=== PATIENT | female | born 1990 | race Caucasian/White ===

== ENCOUNTER 2017-05-22 09:02 | Inpatient (IN) | payer BC, OTHER ==
[~2017-05-22] VITALS: Ht 160 cm; Wt 77.1 kg
[2017-05-23] MEDS ORDERED: FAMO1TAB18 PO (03:15)
[2017-05-23] MEDS ORDERED: ONDANSETRON 4 MG/2 ML VIAL IM PRN (03:15)
[2017-05-23] MEDS ORDERED: LORAZEPAM 2 MG/1 ML VIAL IM PRN (03:15)
[2017-05-23] MEDS ORDERED: MAGNESIUM HYDROXIDE 30 ML LIQUID UDC PO PRN (03:15)
[2017-05-23] MEDS ORDERED: MIRALAX 17 GM POWD.PACK PO PRN (03:15)
[2017-05-23] MEDS ORDERED: ACET-2605 PO (03:15)
[2017-05-23] MEDS ORDERED: ACETAMINOPHEN 325 MG TABLET PO PRN (03:15)
[2017-05-23] MEDS ORDERED: CLIN300C11 PO (03:15)
[2017-05-23] MEDS ORDERED: ALPR1TAB2 PO (03:15)
[2017-05-23] MEDS ORDERED: AMPH30TA3 PO (03:15)
[2017-05-23] MEDS ORDERED: IBUPROFEN 400 MG TABLET PO PRN (03:15)
[2017-05-23] MEDS ORDERED: CLONIDINE HCL 0.1 MG TABLET PO PRN (03:15)
[2017-05-23] MEDS ORDERED: LOPERAMIDE HCL 2 MG CAPSULE PO PRN ×2 (03:15)
[2017-05-23] MEDS ORDERED: LORAZEPAM 1 MG TABLET PO PRN (03:15)
[2017-05-23] MEDS ORDERED: ONDANSETRON ODT 4 MG TAB.RAPDIS SL PRN (03:15)
[2017-05-23] MEDS ORDERED: THIAMINE HCL 200 MG/2 ML VIAL IM ONE (03:15)
[2017-05-23] MEDS ORDERED: DICYCLOMINE HCL 20 MG TABLET PO PRN (03:15)
[2017-05-23] MEDS ORDERED: HYDROXYZINE PAMOATE 25 MG CAPSULE PO PRN (03:15)
[2017-05-23] MEDS ORDERED: AMPH30CA3 PO (03:15)
--- NOTE | 2017-05-23 03:27 | NUR ---
INTAKE ASSESSMENT Pt is a/o x 4 with no changes in LOC and ambulates with a steady gait. Pt is calm and cooperative with plan of care. Pt was informed about [facility] policies including smoking passes and Q4H assessments. Pt was given an opportunity to ask questions and express concerns. Vitals signs were taken BP: 123/69 HR: 92 T: 97.5 O2 Sat: 95% R: 20 Pain: 0/10 . Further assessment will continue on the 3rd floor in the pt's assigned room.
[2017-05-23 03:42] LABS: *URINE HCG, QUAL NEGATIVE (NEGATIVE)
[2017-05-23 03:45] LABS: *AMPHETAMINE, URINE POSITIVE (NEGATIVE); *BARBITURATE, URINE NEGATIVE (NEGATIVE); *CANNABINOID, URINE NEGATIVE (NEGATIVE); *COCCAINE, URINE NEGATIVE (NEGATIVE); *OPIATE, URINE NEGATIVE (NEGATIVE); *PHENCYCLIDINE SCREEN,URINE NEGATIVE (NEGATIVE)
[2017-05-23 03:56] LABS: BASOPHILS % (AUTO) 0.6 % (0.0-2.0); BILIRUBIN,TOTAL 0.3 mg/dL (0.2-1.0); CREATININE 0.7 mg/dL (0.6-1.3); EOSINOPHILS # (AUTO) 0.3 K/uL (0.0-0.7); EOSINOPHILS % (AUTO) 3.9 % (0.0-7.0); HEMATOCRIT 41.2 % (37-47); LYMPHOCYTES # (AUTO) 4.3 K/UL (0.8-4.8); LYMPHOCYTES % (AUTO) 55.2 % (20.5-51.5); MAGNESIUM 1.7 mg/dL (1.8-2.4); MEAN CORPUSCULAR HEMOGLOBIN 32.3 UUG (27.0-31.0); MEAN CORPUSCULAR HGB CONC 34 g/dL (32.0-37.0); MEAN CORPUSCULAR VOLUME 95.3 FL (81.0-99.0); MONOCYTES # (AUTO) 0.6 K/UL (0.1-1.30); MONOCYTES % (AUTO) 7.3 % (0.0-11.0); NEUTROPHILS # (AUTO) 2.5 K/UL (1.8-8.9); PLATELET COUNT (AUTO) 268 K/UL (150-450); POTASSIUM 3.6 mmol/L (3.5-5.1); RED BLOOD CELL COUNT(AUTO) 4.32 MIL/UL (4.2-5.4); TOTAL PROTEIN, SERUM 7.8 g/dL (6.4-8.2); WHITE BLOOD COUNT (AUTO) 7.7 K/UL (4.0-11.2)
[2017-05-23 04:00] VITALS: BP 123/69
[2017-05-23 04:06] LABS: THYROID STIMULATING HORMONE 6.894 mIU/mL (0.358-3.740)
[2017-05-23] MEDS: LORAZEPAM 1 MG TABLET PO PRN ×2 (04:18→08:44)
--- NOTE | 2017-05-23 04:18 | NUR ---
ATIVAN PRN Pt reported having anxiety. Upon assessment CIWA score is 5. Ativan 1 mg PO PRN was given. Pt was encouraged to notify staff of any changes in condition or of any further concerns. Pt verbalized an understanding. All safety measures in place. Will monitor fo effectiveness.
[2017-05-23] MEDS ORDERED: LORAZEPAM 1 MG TABLET ONE (04:22)
[2017-05-23] MEDS ORDERED: [UNRECOGNIZED DRUG - OTHER] (04:28)
--- NOTE | 2017-05-23 04:35 | NUR ---
ADMISSION NOTE Pt arrived ambulatory to the [facility] 3rd floor (accompanied by [facility] staff) at approximately 0330. Pt is a 26 y/o female being admitted for ETOH and Adderall dependence and use. Pt has NKA but reported a PMH of anxiety, depression, [place] disease, Fibromyalgia, Gastritis, Tonsillectomy, and Impetigo. Pt is unmarried but has one child. Pt denies having a primary care physician but reported having a psych doctor by the name Dr. Rubens Rincon. Pt arrived with medication from home including two prescription bottles of Adderall 30 mg. All medications reconciled. Pt was then asked about her substance use history including; what substance(s), frequency, amount, route, last use, and last amount used. Pt stated "I started drinking heavily when I was 16 years old. That's when I got [place] disease and it was just a lot for me. I have periods of sobriety, but for the past like 10 months I've been drinking 750 ml of vodka every day. My doctor prescribed me Adderall because I've tried everything but that's the only thing that helps with my fibromyalgia. If I don't take it I have literally no energy. I don't take more than I'm supposed to. I take 30 mg in the morning and another 30 mg in the evening." Pt was asked about her treatment history. Pt replied " Most recently I was in [facility] treatment center from July 15 to July in 2014. I've been to several treatment centers." Upon assessment pt is a/o x 4 with no changes in LOC, however pt is intoxicated aeb lingering odor of alcohol. Pt's skin is slightly moist but intact with no rashes, bruises, lacerations, or abrasions noted, but pt has a closed cyst on the right side of her forehead. Minimal redness noted, but no drainage or bleeding. Pt reported taking Clindamycin for the cyst, but has not been taking the medication as of late. Pictures taken and filed in the clients chart. Skin turgor indicates adequate hydration. PERRLA noted. Lung auscultations clear in all lobes. Breathing is even and unlabored. Bowel sounds present in all four quadrants, and abdomen is soft and non distended. Pt reported last having a bowel movement yesterday morning (05/22/17). At this time pt is calm and cooperative with plan of care. Pt denies having any pain/discomfort. Pt was encouraged to notify staff of any changes in condition or of any concerns. Pt verbalized an understanding. Vitals signs are as follows: BP: 123/69 HR: 92 T: 97.5 O2 Sat: R: 20 Pain: 0/10 CIWA: 3. MD aware of pt's arrival. All safety measures in place. Will continue to monitor. Addendum: 05/23/17 at 0635 by LORENE BACK LVN Pt reported having "seizure-like" episodes happen to her in the past, but she has never been hospitalized for one and she's never been diagnosed. Pt stated " I felt like I was going to have one yesterday so I took magnesium. I don't flop around or anything like that, but sometimes I just feel it."
--- NOTE | 2017-05-23 05:18 | NUR ---
ATIVAN PRN REASSESSMENT Pt reported " I'm okay now." CIWA at this time is a 2. PRN effective. Will continue to monitor.
--- NOTE | 2017-05-23 07:18 | NUR ---
END OF SHIFT NOTE Pt is a 26 y/o female being admitted for ETOH and Adderall dependence and use. Pt has NKA but reported a PMH of anxiety, depression, [place] disease, Fibromyalgia, Gastritis, Tonsillectomy, possible seizures and Impetigo. Pt is not on a taper at this time,but has PRN medication for any discomfort/distress. Pt received Ativan 1 mg PO PRN for a c/o anxiety and a CIWA of 5. Last CIWA: 2 (05). Pt slept for a total of 3 hours. All safety measures in place. Will endorse to the oncoming nurse.
--- NOTE | 2017-05-23 07:52 | NUR ---
BEGINNING OF SHIFT Patient endorsement report received from teller supervisor nurse, all pertinent information discussed. patient is a 26 year old female admitted on: 05/23/2017, with admitting Dx: ETOH dependence. Patient with past medical history of: Anxiety, depression, fibromyalgia, impetigo, possible seizures, lyme disease, and gastritis. Patient with substance use of: vodka 750ml daily for 10 months. Patient also with history of taking prescription Adderall 30mg BID. Seizure and Fall precautions observed at all times. Patient skin is intact, but has cyst on forehead. Patient Received PRN: Ativan during teller supervisor, per teller supervisor medication effective, last ciwa score of: 2. Patient slept for 3 hours. Patient continues under close observation. Patient currently with no ongoing taper, continues under close observation of ciwa scores and vital signs, PRN medications to be administered for s/sx of withdrawal. Safety measures in place. will continue to monitor.
[2017-05-23 08:06] VITALS: BP 95/65
[2017-05-23] MEDS: THIAMINE HCL 100 MG TABLET PO SCH (08:43)
[2017-05-23] MEDS: FOLIC ACID 1 MG TABLET PO SCH (08:43)
[2017-05-23] MEDS: MULTIVITAMINS,THERAPEUTIC TABLET PO SCH (08:43)
--- NOTE | 2017-05-23 08:44 | NUR ---
PRN ATIVAN Patient with ciwa score of: 8, presenting with: fine tremors, moderate anxiety, very mild pins and needles. Administered Ativan 1 mg Po as ordered for ciwa score of: 8 for s/sx of withdrawal. vital signs WNL, Will continue to monitor.
[2017-05-23] MEDS ORDERED: MAGNESIUM OXIDE 400 MG TABLET PO ONE (09:00)
--- NOTE | 2017-05-23 09:44 | NUR ---
ATIVAN REASSESSMENT Medication somewhat effective, ciwa score decreased to 6, reports feeling less anxious. Will continue to monitor.
[2017-05-23] MEDS: ESCITALOPRAM OXALATE 10 MG TABLET PO SCH (10:47)
[2017-05-23 12:52] VITALS: BP 122/83
[2017-05-23] MEDS: LORAZEPAM 1 MG TABLET PO SCH ×3 (13:07→20:53)
[2017-05-23] MEDS: GABAPENTIN 300 MG CAPSULE PO SCH (15:31)
[2017-05-23 17:00] VITALS: BP 111/77
--- NOTE | 2017-05-23 18:58 | NUR ---
START OF SHIFT NOTE: Patient endorsed by day shift nurse. Report received. Patient is a 26 year old female admitted to [facility] on 05/23/2017 for medically supervised withdrawal Alcohol and Adderall PO (Rx Prescription), continue 5 Day Ativan Taper with tolerated well without ASE. Patient remains compliant with treatment, medications and diet regime. Patient reports NKA. Patient is on Full Code, Regular Diet. Patient is on Fall and Seizures Precautions. Patient reports PMH: Anxiety, Depression, Fibromyalgia, Impetigo, Possible Seizures, [place] disease, Gastritis. Patient reports Substance Use: ETOH PO: "Vodka 750 ml during last 10 months. Last uses on 05/23/2017 1,500 ml". Patient reports also uses " Adderall PO (Rx) prescription 30 mg BID". Patient can't recall length of time using this drug. Last uses "60 mg PO on 05/22/2017". Patent reports treatment in [facility]" on July". At the time of endorsement patient is in his room. Patient is alert and oriented x4. Speech is clear and soft. Upon assessment: CIWA 5. Patient presented with anxiety, nervousness, tremors, barely sweating, restless legs, and fatigue. Patient denies SI/HI. Respirations unlabored and even. Patient denies SOB and chest pain. Lungs Sounds are clear bilaterally. Bowel Sounds active in all x4 quadrants. PERRLA, brisk capillary refill, yard jockey equal and strong. Skin is intact, warm and dry to touch. Patient has closed cyst on Right Forehead. VS WNL. Encourage fluids as tolerated. Encourage to attend activities group. Safety measures on place. Call light within reach, bed in lowest position and locked, padded rails up bilaterally rails up bilaterally. Will continue to monitor closely.
--- NOTE | 2017-05-23 18:58 | NUR ---
END OF SHIFT Patient alert and oriented x4, compliant with therapeutic plan of care. patient is a 26 year old female admitted on: 05/23/2017, with admitting Dx: ETOH dependence. Patient with past medical history of: Anxiety, depression, fibromyalgia, impetigo, possible seizures, lyme disease, and gastritis. Patient with substance use of: vodka 750ml daily for 10 months. Patient was started on a 5 day Ativan taper as ordered during shift, first dose administered at approximately 1300. 0900 assessment patient presented with: fine tremors, moderate anxiety and very mild pins and needles to bilateral upper extremities with ciwa score of: 8; 1300 assessment patient presented with: fine tremors, sweats, moderate anxiety, very mild pins and needles to bilateral upper extremities, and mild head fullness with ciwa score of: 11; 1700 assessment patient presented with: mild nausea, no vomiting, fine tremors and barely sweating with ciwa score of: 5. Ativan taper well tolerated, no ASE noted. During shift patient received PRN Ativan 1mg Po as ordered for s/sx of withdrawal, medication was effective one hour post administration. Patient encouraged adequate PO fluid intake as tolerated. Encouraged to attend group therapies/sessions to learn new coping skills to prevent relapse. Denies any SI/HI. All needs met and rendered, call light kept with in reach, safety measures in place. Patient endorsement report given to supervisor housecleaner nurse.
[2017-05-23 20:00] VITALS: BP 124/84
[2017-05-23] MEDS ORDERED: GABAPENTIN 300 MG CAPSULE PO SCH (21:00)
[2017-05-24] VITALS: BP 124/84
[2017-05-24 04:00] VITALS: BP 133/99
--- NOTE | 2017-05-24 07:20 | NUR ---
END OF SHIFT NOTE: Patient endorsed to day shift nurse in stable condition. Report given. Patient is a 26 year old female admitted to [facility] on 05/23/2017 for medically supervised withdrawal from Alcohol and Adderall PO (Rx Prescription), continue 5 Day Ativan Taper with tolerated well without ASE. Patient remains compliant with treatment, medications and diet regime. Patient reports NKA. Patient is on Full Code, Regular Diet. Patient is on Fall and Seizures Precautions. Patient reports PMH: Anxiety, Depression, Fibromyalgia, Impetigo, Possible Seizures, [place] disease, Gastritis. Upon last assessment at 0400: CIWA 5. Patient presented with anxiety, agitation, nervousness, tremors that can be felt, barely sweating, restless legs, and fatigue. Patient denies SI/HI. VS at 0400: T: 98.2; BP: 133/99; HR: 96; RR: 18; O2 SAT: 96%, pain level:"0/10". Respirations unlabored and even. Patient denies SOB and chest pain. Skin is warm and dry to touch. Patient has closed cyst on Right Forehead. NO PRN Medications was administrated during my shift. Encourage fluids as tolerated. Encourage to attend group activities. Patient slept 9 hours, intake 1,210 ml, voided x2. All needs met. Safety measures on place. Call light within reach, bed in lowest position and locked, padded rails up bilaterally.
--- NOTE | 2017-05-24 07:55 | NUR ---
BEGINNING OF SHIFT Patient endorsement report received from manufacturing shift supervisor nurse, all pertinent information discussed. patient is a 26 year old female admitted on: 05/23/2017, with admitting Dx: ETOH dependence. Patient with past medical history of: Anxiety, depression, fibromyalgia, impetigo, possible seizures, lyme disease, and gastritis. Patient with substance use of: vodka 750ml daily for 10 months. Patient also with history of taking prescription Adderall 30mg BID. Seizure and Fall precautions observed at all times. Patient skin is intact, but has cyst on forehead. Patient Received PRN: Ativan during manufacturing shift supervisor, per manufacturing shift supervisor medication effective, last ciwa score of: 5. Patient slept for 9 hours. Patient continues under close observation. continues on Ativan taper as ordered and is scheduled to begin day 2 of taper. Safety measures in place. will continue to monitor.
[2017-05-24 08:15] VITALS: BP 130/96
[2017-05-24] MEDS: THIAMINE HCL 100 MG TABLET PO SCH (08:56)
[2017-05-24] MEDS: FOLIC ACID 1 MG TABLET PO SCH (08:56)
[2017-05-24] MEDS: GABAPENTIN 300 MG CAPSULE PO SCH ×2 (08:56→20:46)
[2017-05-24] MEDS: MULTIVITAMINS,THERAPEUTIC TABLET PO SCH (08:56)
[2017-05-24] MEDS: ESCITALOPRAM OXALATE 10 MG TABLET PO SCH (08:56)
[2017-05-24] MEDS: LORAZEPAM 1 MG TABLET PO SCH ×3 (08:56→20:46)
[2017-05-24] MEDS ORDERED: TUBERCULIN,PURIF.PROT.DERIV. 5 TU/0.1 ML TEST ID ONE (09:00)
--- NOTE | 2017-05-24 13:18 | NUR ---
Therapist prompted client about group times. Client stated she probably won't go today because she wants to rest.
[2017-05-24 14:09] LABS: HEPATITIS B SURFACE AG Negative (Negative)
[2017-05-24 14:32] VITALS: BP 120/80
[2017-05-24 17:44] VITALS: BP 141/91
--- NOTE | 2017-05-24 18:52 | NUR ---
START OF SHIFT NOTE: Patient endorsed by day shift nurse. Report received. Patient is a 26 year old female admitted to [facility] on 05/23/2017 for medically supervised withdrawal Alcohol and Aderall PO (Rx Prescription), continue 5 Day Ativan Taper with tolerated well without ASE. Patient remains compliant with treatment, medications and diet regime. Patient reports NKA. Patient is on Full Code, Regular Diet. Patient is on Fall and Seizures Precautions. At the time of endorsement patient is alert and oriented x4. Speech is clear and soft. Upon assessment: CIWA 6. Patient presented with anxiety, nervousness, tremors, barely sweating, restless legs, and fatigue. Patient denies SI/HI. Respirations unlabored and even. Patient denies SOB and chest pain. Lungs Sounds are clear bilaterally. Bowel Sounds active in all x4 quadrants. PERRLA, brisk capillary refill, library aide equal and strong. Skin is intact, warm and dry to touch. Patient has closed cyst on Right Forehead. VS WNL. Encourage fluids as tolerated. Encourage to attend activities group. Safety measures on place. Call light within reach, bed in lowest position and locked, padded rails up bilaterally rails up bilaterally. Will continue to monitor closely.
--- NOTE | 2017-05-24 18:52 | NUR ---
END OF SHIFT Patient alert and oriented x4, compliant with therapeutic plan of care. patient is a 26 year old female admitted on: 05/23/2017, with admitting Dx: ETOH dependence. Patient with past medical history of: Anxiety, depression, fibromyalgia, impetigo, possible seizures, lyme disease, and gastritis. Patient with substance use of: vodka 750ml daily for 10 months. Patient continues on a 5 day Ativan taper as ordered well tolerated, no ASE noted, currently on day 2 of taper. 0900 assessment patient presented with: fine tremors, barely sweating, anxiety, mild head fullness with ciwa score of: 9; 1300 assessment patient presented with: fine tremors, barely sweating, and anxiety with ciwa score of: 6; 1700 assessment patient presented with: fine tremors, barely sweating, and anxiety with ciwa score of: 6. During shift patient received no PRN medications. Patient encouraged adequate PO fluid intake as tolerated. Encouraged to attend group therapies/sessions to learn new coping skills to prevent relapse. Denies any SI/HI. All needs met and rendered, call light kept with in reach, safety measures in place. Patient endorsement report given to technical account representative nurse.
[2017-05-24 20:00] VITALS: BP 134/94
[2017-05-24] MEDS: diphenhydrAMINE 50 MG CAPSULE PO PRN (20:46)
--- NOTE | 2017-05-24 20:46 | NUR ---
PRN BENADRYL 50 MG 1 TAB PO ADMINISTRATION: Patient c/o insomnia and asked aid. Patient was assessed. VS WNL. PRN Benadryl 50 mg 1 tab PO administrated as ordered with full glass of water. Patient tolerated well. All needs met. Safety measures on place. Call light within reach, bed in lowest position and locked, padded rails up bilaterally.
[2017-05-24] MEDS: MAG HYDROX/AL HYDROX/SIMETH 30 ML LIQUID UDC PO PRN (20:53)
--- NOTE | 2017-05-24 20:53 | NUR ---
PRN MAALOX SUSPENSION 30 MG PO ADMINISTRATION: Patient c/o heartburn and asked aid. Patient was assessed. VS WNL. PRN Maalox 30 mg PO administrated as ordered with full glass of water. Patient tolerated well. All needs met. Safety measures on place. Call light within reach, bed in lowest position and locked, padded rails up bilaterally. Addendum: 05/24/17 at 2352 by KOBY MCCLENDON RN PRN Maalox Suspension 30 mg PO Addendum: 05/24/17 at 2354 by KOBY MCCLENDON RN PRN MAALOX SUSPENSION 30 ML PO ADMINISTRATION: PRN Maalox 30 ml PO administrated as ordered with full glass of water.
--- NOTE | 2017-05-24 21:46 | NUR ---
RE-ASSESSMENT Patient is sleeping. Respirations unlabored and even. RR 15. PRN Benadryl PO was effective. All needs met. Safety measures on place. Call light within reach, bed in lowest position and locked, padded rails up bilaterally rails up bilaterally. Will continue to monitor closely.
--- NOTE | 2017-05-24 23:49 | NUR ---
RE-ASSESSMENT Patient is sleeping. Respirations unlabored and even. RR 15. PRN Maalox Suspension PO was effective. All needs met. Safety measures on place. Call light within reach, bed in lowest position and locked, padded rails up bilaterally rails up bilaterally. Will continue to monitor closely.
[2017-05-25] VITALS: BP 113/73
[2017-05-25 04:00] VITALS: BP 106/64
--- NOTE | 2017-05-25 07:05 | NUR ---
END OF SHIFT NOTE: Patient endorsed to day shift nurse in stable condition. Report given. Patient is a 26 year old female admitted to [facility] on 05/23/2017 for medically supervised withdrawal from Alcohol and Adderall PO (Rx Prescription), continue 5 Day Ativan Taper with tolerated well without ASE. Patient remains compliant with treatment, medications and diet regime. Patient reports NKA. Patient is on Full Code, Regular Diet. Patient is on Fall and Seizures Precautions. Upon last assessment at 0400: CIWA 3 Patient presented with anxiety, agitation, nervousness, tremors that can be felt, barely sweating, restless legs, and fatigue. Patient denies SI/HI. VS at 0400: T: 98.3; BP: 106/64; HR: 70; RR: 20; O2 SAT: 97%, pain level:"0/10". Respirations unlabored and even. Patient denies SOB and chest pain. Skin is warm and dry to touch. Patient has closed cyst on Right Forehead. PRN Benadryl PO administrated as ordered for insomnia and was effective. Patient slept 7 hours, intake 1,565 ml, voided x4. Encourage fluids as tolerated. Encourage to attend activities group. All needs met. Safety measures on place. Call light within reach, bed in lowest position and locked, padded rails up bilaterally.
[2017-05-25 08:00] VITALS: BP 100/68
--- NOTE | 2017-05-25 08:20 | NUR ---
START OF SHIFT: RECEIVED PT A/O X 4. SHE REPORTS RESTLESS SLEEP LAST NIGHT AND REPORTS SOME FATIGUE AND RESTLESSNESS. CIWA 4 ATIVAN TAPER IN PROGRESS. SHE STATES SHE IS COMPLIANT WITH GROUPS AND ACTIVITIES. ENCOURAGED INCREASED FLUIDS TO ASSIST IN FACILITATING DETOX PROCESS. WILL CONTINUE TO MONITOR.
[2017-05-25] MEDS: FOLIC ACID 1 MG TABLET PO SCH (09:45)
[2017-05-25] MEDS: LORAZEPAM 1 MG TABLET PO SCH ×4 (09:45→21:32)
[2017-05-25] MEDS: MULTIVITAMINS,THERAPEUTIC TABLET PO SCH (09:45)
[2017-05-25] MEDS: THIAMINE HCL 100 MG TABLET PO SCH (09:45)
[2017-05-25] MEDS: GABAPENTIN 300 MG CAPSULE PO SCH ×3 (09:45→21:32)
[2017-05-25] MEDS: ESCITALOPRAM OXALATE 10 MG TABLET PO SCH (09:46)
[2017-05-25 12:00] VITALS: BP 100/65
[2017-05-25 16:00] VITALS: BP 122/89
[2017-05-25] MEDS: MAG HYDROX/AL HYDROX/SIMETH 30 ML LIQUID UDC PO PRN ×2 (16:12→21:59)
--- NOTE | 2017-05-25 19:04 | NUR ---
END OF SHIFT: PT CONTINUES ON ATIVAN TAPER. LAST CIWA 3.SHE C/O INTERMITTENT ANXIETY AND STATES DETOX MEDS ARE EFFECTIVE. SHE C/O HEARTBURN TODAY. PRN MYLANTA GIVEN AND EFFECTIVE. SHE STATES SHE IS MOTIVATED TO STAY SOBER . SHE REPORTS NOT SLEEPING WELL AT NIGHT. [facility].
--- NOTE | 2017-05-25 19:15 | NUR ---
START OF SHIFT Received 26 year old female patient admitted on 05/23/17 for ETOH and Adderall dependency. Pt is full code with NKA. She reports a PMHx of anxiety, depression, fibromyalgia, impetigo, lyme disease, and gastritis. She reports using ETOH (vodka) 750 mL daily for 10 months. Last dose was 1500 mL on 05/23/17. And Adderall (PO) 30 mg BID. Last dose was 60 mg on . Pt placed on 5 day Ativan taper and tolerating well. Per endorsement, pt did not receive or request PRN medications. Pt is alert and oriented x4, breathing is even and unlabored. Safety measures in place. Will continue to monitor.
[2017-05-25 20:00] VITALS: BP 122/81
[2017-05-25] MEDS: diphenhydrAMINE 50 MG CAPSULE PO PRN (21:32)
--- NOTE | 2017-05-25 21:32 | NUR ---
PRN BENADRYL/MOTRIN Pt complains of inability to sleep and leg pain /. PRN Benadryl and Motrin administered as ordered. Breathing even and unlabored, safety measures in place. Will monitor.
--- NOTE | 2017-05-25 21:59 | NUR ---
PRN MYLANTA Pt complains of heartburn. PRN Mylanta administered as ordered. Breathing is even and unlabored. Respirations 16, safety measures in place. Will monitor effectiveness.
--- NOTE | 2017-05-25 22:32 | NUR ---
PRN BENADRYL/MOTRIN REASSESSMENT PRN medications effective. Pt is lying in bed with eyes closed noted to be asleep. Breathing is even and unlabored. Respirations 16, safety measures in place. Will continue to monitor.
--- NOTE | 2017-05-25 22:59 | NUR ---
PRN MYLANTA REASSESSMENT PRN medication effective. Pt lying in bed with eyes closed noted to be asleep. No facial grimacing noted. Breathing even and unlabored, safety measures in place. Will monitor.
--- NOTE | 2017-05-26 | NUR ---
VITALS REFUSED, CIWA DEFERRED 0000 vitals refused. CIWA deferred d/t pt lying in bed with eyes closed noted to be asleep. Respirations 16, breathing is even and unlabored. Safety measures in place. Will continue to monitor.
--- NOTE | 2017-05-26 04:00 | NUR ---
VITALS REFUSED, CIWA DEFERRED 0400 vitals refused. CIWA deferred d/t pt lying in bed with eyes closed noted to be asleep. Respirations 16, breathing is even and unlabored. Safety measures in place. Will continue to monitor.
--- NOTE | 2017-05-26 07:12 | NUR ---
END OF SHIFT Pt is 26 year old female patient admitted on 05/23/17 for ETOH and Adderall dependency. Pt is full code with NKA. She reports a PMHx of anxiety, depression, fibromyalgia, impetigo, lyme disease, and gastritis. Pt continues on 5 day Ativan taper and tolerating well. At 2131 she received PRN Benadryl and Motrin, At 2158 she received PRN Mylanta. She slept a total of 8 hrs, Intake: 1765mL, void: x3, BM:x2, CIWA:3. Pt remains alert and oriented x4, breathing is even and unlabored. Safety measures in place. Endorsed to oncoming shift.
--- NOTE | 2017-05-26 07:59 | NUR ---
BEGINNING OF SHIFT Patient endorsement report received from film processing shift supervisor nurse, all pertinent information discussed. patient is a 26 year old female admitted on: 05/23/2017, with admitting Dx: ETOH dependence. Patient with past medical history of: Anxiety, depression, fibromyalgia, impetigo, possible seizures, lyme disease, and gastritis. Patient with substance use of: vodka 750ml daily for 10 months. Patient also with history of taking prescription Adderall 30mg BID. Seizure and Fall precautions observed at all times. Patient skin is intact, but has cyst on forehead. Patient Received PRN: Motrin, Mylanta and benadryl during film processing shift supervisor, per film processing shift supervisor medication effective, last ciwa score of: 3. Patient slept for 8 hours. Patient continues under close observation. continues on Ativan taper as ordered and is scheduled to begin day 4 of taper. Safety measures in place. will continue to monitor.
[2017-05-26 08:11] VITALS: BP 109/86
[2017-05-26] MEDS: GABAPENTIN 300 MG CAPSULE PO SCH ×3 (08:42→21:29)
[2017-05-26] MEDS: ESCITALOPRAM OXALATE 10 MG TABLET PO SCH (08:42)
[2017-05-26] MEDS: FOLIC ACID 1 MG TABLET PO SCH (08:42)
[2017-05-26] MEDS: LORAZEPAM 1 MG TABLET PO SCH ×3 (08:42→21:30)
[2017-05-26] MEDS: MULTIVITAMINS,THERAPEUTIC TABLET PO SCH (08:43)
[2017-05-26] MEDS: THIAMINE HCL 100 MG TABLET PO SCH (08:43)
[2017-05-26 12:10] VITALS: BP 109/60
[2017-05-26 17:08] VITALS: BP 128/73
--- NOTE | 2017-05-26 18:48 | NUR ---
END OF SHIFT Patient alert and oriented x4, compliant with therapeutic plan of care. patient is a 26 year old female admitted on: 05/23/2017, with admitting Dx: ETOH dependence. Patient with past medical history of: Anxiety, depression, fibromyalgia, impetigo, possible seizures, lyme disease, and gastritis. Patient with substance use of: vodka 750ml daily for 10 months. Patient was started on a 5 day Ativan taper as ordered, currently on day 4 of taper, well tolerated, no ASE noted. 0900 assessment patient presented with: tremors that can be felt but not seen, barely sweat, and mild anxiety with ciwa score of: 3. 1300 assessment patient presented with: tremors that can be felt but not seen, barely sweat, and mild anxiety with ciwa score of: 3; 1700 assessment patient presented with: tremors that can be felt but not seen, barely sweat, and mild anxiety with ciwa score of: 3. Detox medication effective at reducing withdrawal symptoms. Encouraged to attend group therapies/sessions to learn new coping skills to prevent relapse. Denies any SI/HI. All needs met and rendered, call light kept with in reach, safety measures in place. Patient endorsement report given to can tender nurse.
--- NOTE | 2017-05-26 19:15 | NUR ---
START OF SHIFT NOTE : Pt. is 26 years old female, alert and oriented x4, compliant with therapeutic plan of care , admitted on: 05/23/2017, with admitting Dx: ETOH dependence. Patient with past medical history of: Anxiety, depression, fibromyalgia, impetigo, possible seizures, lyme disease, and gastritis. Patient with substance use of: vodka 750ml daily for 10 months. Patient was started on a 5 day Ativan taper as ordered, currently on day 4 of taper, well tolerated, no ASE noted. Detox medication effective at reducing withdrawal symptoms. Encouraged to attend group therapies/sessions to learn new coping skills to prevent relapse. Denies any SI/HI. Safety measures in place : bed on lowest position with side rails x2 up for safety, call light within reach. Will continue to monitor closely and offer help
[2017-05-26 20:00] VITALS: BP 123/77
--- NOTE | 2017-05-26 21:00 | NUR ---
PRN BENADRYL Pt. complains of sleeplessness. PRN BENADRYL given as ordered. Safety measures in place : bed on lowest position with side rails x2 up for safety, call light within reach. Will continue to monitor closely and offer help.
[2017-05-26] MEDS: diphenhydrAMINE 50 MG CAPSULE PO PRN (21:58)
--- NOTE | 2017-05-26 22:00 | NUR ---
REASSESSMENT KOTA Pt. is sleeping, RR=16 , unlabored and even. Safety measures in place : bed on lowest position with side rails x2 up for safety, call light within reach. Will continue to monitor closely and offer help.
--- NOTE | 2017-05-27 06:34 | NUR ---
END OF SHIFT NOTE : Pt. is 26 years old female, alert and oriented x4, compliant with therapeutic plan of care , admitted on: 05/23/2017, with admitting Dx: ETOH dependence. Patient with past medical history of: Anxiety, depression, fibromyalgia, impetigo, possible seizures, lyme disease, and gastritis. Patient with substance use of: vodka 750ml daily for 10 months. Patient was started on a 5 day Ativan taper as ordered, currently on day 4 of taper, well tolerated, no ASE noted. Detox medication effective at reducing withdrawal symptoms. Encouraged to attend group therapies/sessions to learn new coping skills to prevent relapse. Denies any SI/HI. Pt remains compliant with the treatment plan. PRN BENADRYL given during my shift. V/S remain WNL. RR=16, even and unlabored, lungs clear upon auscultation, abdomen soft and non- distended. Pt denies nausea, vomiting and diarrhea. LAST CIWA= 2 at 0400 , HJCVPW=934 ml, voided x1 , slept 8 hours. Safety measures in place : bed on lowest position with side rails x2 up for safety, call light within reach. Will continue to monitor closely and offer help.
--- NOTE | 2017-05-27 07:20 | NUR ---
BEGINNING OF SHIFT Patient endorsement report received from nightman nurse, all pertinent information discussed. patient is a 26 year old female admitted on: 05/23/2017, with admitting Dx: ETOH dependence. Patient with past medical history of: Anxiety, depression, fibromyalgia, impetigo, possible seizures, lyme disease, and gastritis. Patient with substance use of: vodka 750ml daily for 10 months. Patient also with history of taking prescription Adderall 30mg BID. Seizure and Fall precautions observed at all times. Patient skin is intact, but has cyst on forehead. Patient Received PRN: benadryl during nightman, per nightman medication effective, last ciwa score of: 2. Patient slept for 8 hours. Patient continues under close observation. continues on Ativan taper as ordered and is scheduled to begin day 5 of taper. Safety measures in place. will continue to monitor.
[2017-05-27 08:08] VITALS: BP 112/66
[2017-05-27] MEDS: GABAPENTIN 300 MG CAPSULE PO SCH ×3 (08:35→21:45)
[2017-05-27] MEDS: LORAZEPAM 1 MG TABLET PO SCH ×2 (08:36→21:45)
[2017-05-27] MEDS: ESCITALOPRAM OXALATE 10 MG TABLET PO SCH (08:36)
[2017-05-27] MEDS: FOLIC ACID 1 MG TABLET PO SCH (08:36)
[2017-05-27] MEDS: MULTIVITAMINS,THERAPEUTIC TABLET PO SCH (08:36)
[2017-05-27] MEDS: THIAMINE HCL 100 MG TABLET PO SCH (08:36)
[2017-05-27 13:09] VITALS: BP 129/84
[2017-05-27] MEDS: DICYCLOMINE HCL 20 MG TABLET PO SCH ×2 (15:48→21:45)
[2017-05-27 17:22] VITALS: BP 126/83
--- NOTE | 2017-05-27 19:03 | NUR ---
END OF SHIFT Patient alert and oriented x4, compliant with therapeutic plan of care. patient is a 26 year old female admitted on: 05/23/2017, with admitting Dx: ETOH dependence. Patient with past medical history of: Anxiety, depression, fibromyalgia, impetigo, possible seizures, lyme disease, and gastritis. Patient with substance use of: vodka 750ml daily for 10 months. Patient was started on a 5 day Ativan taper as ordered, currently on day 5 of taper, well tolerated, no ASE noted. 0900 assessment patient presented with: Tremors that can be felt but not seen, and mild anxiety with ciwa score of: 2; 1300 assessment patient presents with tremors that can be felt but not seen and mild anxiety with ciwa score of: 2; 1700 assessment patient presented with: tremors that can be felt but not seen, and mild anxiety, with ciwa score of: 2. no PRN medication swere adminstered during shift. Detox medication effective at reducing withdrawal symptoms. Encouraged to attend group therapies/sessions to learn new coping skills to prevent relapse. Denies any SI/HI. All needs met and rendered, call light kept with in reach, safety measures in place. Patient endorsement report given to power and recovery shift engineer nurse.
[2017-05-27 20:00] VITALS: BP 110/65
--- NOTE | 2017-05-27 20:05 | NUR ---
START OF SHIFT Received report from day shift nurse. Pt is lying in bed resting. She is a 26 yo female admitted to [facility] on 05/23 for ETOH dependence. She is A&O x4 and ambulatory. NKA, full code status, and on a regular diet. She has a PMH of fibromyalgia, impetigo, lyme disease, gastritis, possible seizure, anxiety, and depression. On admission she admitted to drinking vodka 750mL per day and using rx adderall 30mg BID. 5 day Ativan taper started 05/23. Pt verbalizes that she has been sleeping since after dinner. She reports fatigue, anxiety, and is observed to have fine tremors. Fall and seizure precautions in place. Bed is down with call light in reach.
[2017-05-27] MEDS: diphenhydrAMINE 50 MG CAPSULE PO PRN (21:45)
--- NOTE | 2017-05-27 21:45 | NUR ---
PRN Benadryl Pt reports inability to sleep. PRN Benadryl administered.
--- NOTE | 2017-05-27 22:45 | NUR ---
PRN Benadryl reassessment PRN Benadryl effective. Pt is lying in bed resting with eyes closed. Respirations even and unlabored. Safety measures in place.
--- NOTE | 2017-05-28 | NUR ---
0000 Vitals refused/CIWA deferred Pt refused to be woken for 0000 Vitals. She is lying in bed resting with eyes closed. Respirations even and unlabored. CIWA ordered Q4HWA. Safety measures in place.
--- NOTE | 2017-05-28 04:00 | NUR ---
0400 Vitals refused/CIWA deferred Pt refused to be woken for 0400 Vitals. She is lying in bed resting with eyes closed. Respirations even and unlabored. CIWA ordered Q4HWA. Safety measures in place.
--- NOTE | 2017-05-28 07:15 | NUR ---
END OF SHIFT Report provided to day shift nurse. Pt is lying in bed resting. She is a 26 yo female admitted to [facility] on 05/23 for ETOH dependence. She is A&O x4. NKA, full code status, and on a regular diet. She has a PMH of fibromyalgia, impetigo, lyme disease, gastritis, possible seizure, anxiety, and depression. On admission she admitted to drinking vodka 750mL per day and using rx adderall 30mg BID. 5 day Ativan taper started 05/23. Pt is cooperative with treatment. PRN Benadryl administered. Last CIWA was 5. She drank 2000mL and slept for 8 hours. Fall and seizure precautions in place. Bed is down with call light in reach.
--- NOTE | 2017-05-28 07:36 | NUR ---
Start of shift note; Received report from night nurse. Patient is a 26 year old female admitted on 05/23/17 for ETOH withdrawals. Patient was placed on 5 day Ativan taper, no adverse reactions noted. Patient reported history of anxiety, depression, fibromyalgia, impetigo, lyme disease, gastritis. Patient's last CIWA score is 5 at 2000 per endorsement. Skin is dry and intact. Patient is on fall and seizure precaution. Bed in lowest position, call light within reach. Will continue to monitor patient.
[2017-05-28 08:00] VITALS: BP 100/68
[2017-05-28] MEDS: DICYCLOMINE HCL 20 MG TABLET PO SCH ×3 (09:08→20:42)
[2017-05-28] MEDS: THIAMINE HCL 100 MG TABLET PO SCH (09:08)
[2017-05-28] MEDS: MULTIVITAMINS,THERAPEUTIC TABLET PO SCH (09:08)
[2017-05-28] MEDS: FOLIC ACID 1 MG TABLET PO SCH (09:08)
[2017-05-28] MEDS: GABAPENTIN 300 MG CAPSULE PO SCH ×3 (09:08→20:42)
[2017-05-28] MEDS: ESCITALOPRAM OXALATE 10 MG TABLET PO SCH (09:08)
[2017-05-28 12:00] VITALS: BP 115/65
[2017-05-28 13:54] LABS: *AMPHETAMINE, URINE NEGATIVE (NEGATIVE); *BARBITURATE, URINE NEGATIVE (NEGATIVE); *CANNABINOID, URINE NEGATIVE (NEGATIVE); *COCCAINE, URINE NEGATIVE (NEGATIVE); *OPIATE, URINE NEGATIVE (NEGATIVE); *PHENCYCLIDINE SCREEN,URINE NEGATIVE (NEGATIVE)
[2017-05-28] MEDS ORDERED: GABA-534 PO (13:56)
[2017-05-28 16:00] VITALS: BP 127/85
--- NOTE | 2017-05-28 18:30 | NUR ---
End of shift note; Patient is AOX4. Patient is a 26 year old female admitted on 05/23/17 for ETOH withdrawals. Patient was placed on 5 day Ativan taper, no adverse reactions noted. Patient reported history of anxiety, depression, fibromyalgia, impetigo, lyme disease, gastritis. Patient remained compliant with treatment plan. Medications were effective in reducing withdrawal symptoms. Patient is medically cleared for discharge tomorrow . All safety measures secured. Met all needs.
--- NOTE | 2017-05-28 19:55 | NUR ---
START OF SHIFT Received report from day shift nurse. Pt attended a group meeting and returned to her room after. She is a 26 yo female admitted to [facility] on 05/23 for ETOH dependence. She is A&O x4 and ambulatory. NKA, full code status, and on a regular diet. She has a PMH of fibromyalgia, impetigo, lyme disease, gastritis, possible seizure, anxiety, and depression. On admission she admitted to drinking vodka 750mL per day and using rx adderall 30mg BID. She completed a 5 day Ativan taper today and is scheduled for discharge tomorrow. Minimal s/s of withdrawal noted. She denies N/V/D or pain. Pt verbalizes that she is hopeful about moving forward in her treatment. Provided support and encouragement. Fall and seizure precautions in place. Bed is down with call light in reach.
[2017-05-28 20:00] VITALS: BP 129/79
[2017-05-28] MEDS: diphenhydrAMINE 50 MG CAPSULE PO PRN (21:30)
--- NOTE | 2017-05-28 21:31 | NUR ---
PRN Benadryl Pt reports inability to sleep. PRN Benadryl administered.
--- NOTE | 2017-05-29 07:18 | NUR ---
Start of shift note Pt was admitted for ETOH dependence and adderall use. Pt has a PMHx of anxiety, depression, fibromyalgia, impetigo, potential seizures, lyme disease and gastritis. Pt is a full code, denies any allergies, and is on a regular diet. Pt has successfully completed a 5 day ativan taper without incident. Pt states that she feels ready for discharge. Pt has no complaints at this time. Will continue to monitor pt. All needs addressed at this time.
--- NOTE | 2017-05-29 07:25 | NUR ---
END OF SHIFT Report provided to day shift nurse. Pt is in her room getting ready for day. She is a 26 yo female admitted to [facility] on 05/23 for ETOH dependence. She is A&O x4 and ambulatory. NKA, full code status, and on a regular diet. She has a PMH of fibromyalgia, impetigo, lyme disease, gastritis, possible seizure, anxiety, and depression. On admission she admitted to drinking vodka 750mL per day and using rx adderall 30mg BID. She completed a 5 day Ativan taper yesterday and is scheduled for discharge today. PRN Benadryl administered. Last CIWA was 2. She drank 1652mL and slept for 7 hours. Fall and seizure precautions in place. Bed is down with call light in reach.
[2017-05-29 08:00] VITALS: BP 107/59
[2017-05-29] MEDS: DICYCLOMINE HCL 20 MG TABLET PO SCH (09:00)
[2017-05-29] MEDS ORDERED: ESCITALOPRAM OXALATE 10 MG TABLET PO SCH (09:00)
[2017-05-29] MEDS: THIAMINE HCL 100 MG TABLET PO SCH (09:00)
[2017-05-29] MEDS: FOLIC ACID 1 MG TABLET PO SCH (09:00)
[2017-05-29] MEDS: GABAPENTIN 300 MG CAPSULE PO SCH (09:00)
[2017-05-29] MEDS: MULTIVITAMINS,THERAPEUTIC TABLET PO SCH (09:00)
--- NOTE | 2017-05-29 09:32 | NUR ---
Discharge note Pt was admitted for ETOH dependence. Pt has a recent CIWA of 1 at 0800. VS are WNL. Denies SI/HI. States that she feels ready for discharge. Verbalized her understanding of the discharge instructions. Pt discharge instructions, medications, prescriptions and all belongings returned to pt. Pt ID band removed, pt ambulated off of unit with [employer] DIRECT[employer], left facility via [facility].
== END 2017-05-29 09:32 | disposition other institution (70) | DRG 895 ==
LOC: SRC 05-23 02:09
PROVIDERS: ADMIT Internal Medicine; ATTEND Internal Medicine
PROC: HZ2ZZZZ Detoxification Services for Substance Abuse Treatment (ICD-10-PCS; principal; 2017-05-23)
PROC: HZ31ZZZ Individual Counseling for Substance Abuse Treatment, Behavioral (ICD-10-PCS; 2017-05-24)
PROC: HZ41ZZZ Group Counseling for Substance Abuse Treatment, Behavioral (ICD-10-PCS; 2017-05-25)
DX: F10.230 Alcohol dependence with withdrawal, uncomplicated (principal); F33.2 Major depressive disorder, recurrent severe without psychotic features; K70.10 Alcoholic hepatitis without ascites; Y90.6 Blood alcohol level of 120-199 mg/100 ml; E83.42 Hypomagnesemia; M79.7 Fibromyalgia; F17.210 Nicotine dependence, cigarettes, uncomplicated; F15.23 Other stimulant dependence with withdrawal; R53.82 Chronic fatigue, unspecified; Z86.19 Personal history of other infectious and parasitic diseases; E07.81 Sick-euthyroid syndrome; F41.9 Anxiety disorder, unspecified; F90.9 Attention-deficit hyperactivity disorder, unspecified type; Z81.8 Family history of other mental and behavioral disorders; F60.3 Borderline personality disorder
CPT/HCPCS: 36415; 70030-TC; 80307; 80324; 83690; 83735; 84443; 84703; 85025; 86580; 86592; 86705; 86803; 87340; 87806; A4663; G0480; Q0163

== ENCOUNTER 2018-11-04 18:33 | Inpatient (IN) | payer BC, OTHER ==
[~2018-11-04] VITALS: Ht 160 cm; Wt 71.7 kg
[~2018-11-04 18:33] MED LIST: ACET-2605 PO; FAMO1TAB18 PO; GABA-534 PO; [UNRECOGNIZED DRUG - OTHER]
--- NOTE | 2018-11-04 19:15 | NUR ---
Pre-Admission Assessed 28 year old female to be admitted to [facility] for ETOH (Vodka) withdrawal. Pt is awake, alert, oriented, and noted to be intoxicated at this time. VSS BP 124/71, HR 106, RR 16, and O2 SAT 99% on RA. Pt consumed Vodka 1.75 L throughout the day. [place] 2 [place] Pt has been to [facility] in the past. Is aware and agrees to terms and conditions for admission and treatment. Pt meets criteria for admission. Intake to be completed and will be admitted to room 307. Full assessment to be completed on the unit.
[2018-11-04] MEDS ORDERED: SRC ALCOHOL WITHDRAWAL ADMITTING PROTOCOL XX PRN (20:30)
[2018-11-04] MEDS ORDERED: LOPERAMIDE HCL 2 MG CAPSULE PO PRN ×2 (20:30)
[2018-11-04] MEDS ORDERED: ACETAMINOPHEN 325 MG TABLET PO PRN (20:30)
[2018-11-04] MEDS ORDERED: DIAZEPAM 10 MG TABLET PO PRN ×2 (20:30)
[2018-11-04] MEDS ORDERED: CLONIDINE HCL 0.1 MG TABLET PO PRN (20:30)
[2018-11-04] MEDS ORDERED: ONDANSETRON ODT 4 MG TAB.RAPDIS SL PRN (20:30)
[2018-11-04] MEDS ORDERED: ONDANSETRON 4 MG/2 ML VIAL IM PRN (20:30)
[2018-11-04] MEDS ORDERED: MAG HYDROX/AL HYDROX/SIMETH 30 ML LIQUID UDC PO PRN (20:30)
[2018-11-04] MEDS ORDERED: LORAZEPAM 2 MG/1 ML VIAL IM PRN (20:30)
[2018-11-04] MEDS ORDERED: MAGNESIUM HYDROXIDE 30 ML LIQUID UDC PO PRN (20:30)
[2018-11-04] MEDS ORDERED: THIAMINE HCL 200 MG/2 ML VIAL IM ONE (20:30)
[2018-11-04] MEDS ORDERED: diphenhydrAMINE 50 MG CAPSULE PO PRN (20:30)
[2018-11-04] MEDS ORDERED: DIAZEPAM 5 MG TABLET PO PRN (20:30)
[2018-11-04] MEDS ORDERED: MIRALAX 17 GM POWD.PACK PO PRN (20:30)
--- NOTE | 2018-11-04 20:30 | NUR ---
Admission Note Pt is a 28 year old female being admitted to [facility] for medically supervised ETOH withdrawal. Pt arrived on the unit at 1946, escorted by female HARP REPAIRER and ambulated with steady gait. Pt cooperated with skin, body, and cavity check. UDS completed during intake. Pt was oriented to room, unit, staff, and verbalizes understanding. Pt consumed 1.75 L of Vodka throughout the day with the last drink of 2 oz at about 1800. Pt is visibly intoxicated. Pt is disheveled, unkempt, and smells of alcohol. Pt lives with mom and 3 year old daughter. Substance Abuse History 1. ETOH Vodka) 1.75 L PO daily for the past year. Last drink was 2 oz at 1800 11/04/18. Starting drinking at the age of 14 (14 yr history) 2. Cocaine rare use per pt. I might do bump if somebody asks me, but I cant remember the last time, maybe a few months ago. Started at age 14 (14 year history) Withdrawal Pt states, I will have a seizure if I dont drink, I had one last week when I tried to stop on my own. I also get really anxious, depressed, my skin feels like its crawling with ants, I shake, start sweating, and I get chills really bad. I also have problems with my vision, I see like shadows on the sides and it freaks me out. Ativan works best for me. I dont have seizures when they give me Ativan. Valium does help with the anxiety, but I swear I will have a seizure. Consequences Pt has a positive history of alcohol withdrawal induces seizures, delirium tremors, chest palpitations and HTN. Denies overdose. Has positive history of blackouts. Medical/Psychiatric Conditions Denies having a PCP History of tonsillectomy and Rheumatic Fever as a child. Has been treated for Lyme Disease (resolved), but has Fibromyalgia as a result. Currently taking Levothyroxine for hypothyroid and Adderall because she nods off. Denies having a Psychiatrist Has been diagnosed with Anxiety, Depression, Panic Disorder, and Borderline Personality Disorder. Pt presented with multiple medications, including (veterinary prescriptions), but is currently only taking the Levothyroxine and Adderall. Psychiatric Complications Pt denies ever having suicidal ideation or attempts. Pt has been on multiple 5150s. Pt states, It is real easy to be locked up in [place]. Every time I was drunk and my mother called the police they would take me in. So, its only because I have been drinking not because I was going to hurt myself. Treatment History Pt states, I have been to about 15 different treatment places and Im not going to go there right now. I was here before a couple years ago (05/2017) thats all I know. Motivation Pt states, I drink because I am too harsh on myself. I am overly sensitive and I self oil refinery operator. I am here now because I want to be. Nobody made me come here. I have massive anxiety or I get bored so thats why I keep drinking. My life has been a failure because I cant stop drinking. I was able to get sober on my own and then I stayed sober for 16 months. That is the longest I have ever been sober. so I don't know if a rehab is gonna work. We' ll see. I have support from my mom and I have a bunch of sober friends. Pt was made aware of treatment and therapeutic plan of care, verbalizes understanding. Pt is on fall and seizure precautions. Safety measures in place. Bed low, padded side rails up x 2, and call [place] in reach. MD to be notified for orders. Will continue to monitor.
[2018-11-04 20:42] LABS: *URINE HCG, QUAL NEGATIVE (NEGATIVE)
[2018-11-04 20:50] LABS: BASOPHILS # (AUTO) 0.1 K/uL (0.0-8.0); EOSINOPHILS # (AUTO) 0.1 K/uL (0.0-0.7); EOSINOPHILS % (AUTO) 2.2 % (0.0-7.0); HEMATOCRIT 38.8 % (31.2-41.9); HEMOGLOBIN 13.7 g/dL (10.9-14.3); LYMPHOCYTES # (AUTO) 2.6 K/uL (20.0-40.0); LYMPHOCYTES % (AUTO) 41.7 % (20.5-51.5); MEAN CORPUSCULAR HEMOGLOBIN 35.3 uug (24.7-32.8); MEAN CORPUSCULAR HGB CONC 35 g/dL (32.3-35.6); MEAN CORPUSCULAR VOLUME 99.8 fL (75.5-95.3); MONOCYTES # (AUTO) 0.5 K/uL (2.0-10.0); MONOCYTES % (AUTO) 7.9 % (0.0-11.0); NEUTROPHILS % (AUTO) 47.2 % (38.5-71.5); PLATELET COUNT (AUTO) 319 K/uL (179-408); RED BLOOD CELL COUNT(AUTO) 3.89 MIL/uL (3.63-4.92); WHITE BLOOD COUNT (AUTO) 6.3 K/uL (3.8-11.8)
[2018-11-04 20:56] LABS: *AMPHETAMINE, URINE POSITIVE (NEGATIVE); *BARBITURATE, URINE NEGATIVE (NEGATIVE); *CANNABINOID, URINE NEGATIVE (NEGATIVE); *COCCAINE, URINE NEGATIVE (NEGATIVE); *OPIATE, URINE NEGATIVE (NEGATIVE); *PHENCYCLIDINE SCREEN,URINE NEGATIVE (NEGATIVE)
[2018-11-04 20:58] LABS: BILIRUBIN,TOTAL 0.4 mg/dL (0.2-1.0); CREATININE 0.9 mg/dL (0.6-1.3); POTASSIUM 3.7 mmol/L (3.5-5.1); TOTAL PROTEIN, SERUM 8.5 g/dL (6.4-8.2)
[2018-11-04 21:23] LABS: THYROID STIMULATING HORMONE 1.707 mIU/mL (0.358-3.740)
[2018-11-04] MEDS ORDERED: LORAZEPAM 0.5 MG TABLET PO PRN ×2 (22:00)
--- NOTE | 2018-11-04 22:27 | NUR ---
CIWA 18/PRN Ativan Pt awakened with anxiety, agitation, gross tremors, diaphoretic, chills, and peripheral visual disturbances. CIWA 18. PRN Ativan 2 mg given per order. Will monitor effect.
[2018-11-04] MEDS ORDERED: LEVO25TA9 PO (22:47)
[2018-11-04] MEDS ORDERED: AMPH20TA3 PO (22:47)
--- NOTE | 2018-11-04 23:27 | NUR ---
Reassess PRN Ativan Medication effective. Pt resting with eyes closed. Respirations are even and unlabored. Will continue to monitor.
[2018-11-05] MEDS ORDERED: CIDE600C PO (01:08)
[2018-11-05] MEDS ORDERED: SERT50TA12 PO (01:08)
[2018-11-05] MEDS ORDERED: LEVO25TA2 PO (01:08)
[2018-11-05] MEDS ORDERED: CEPH500T PO (01:08)
[2018-11-05] MEDS ORDERED: PROM25TA15 PO (01:08)
[2018-11-05] MEDS ORDERED: CLOT10TR PO (01:08)
[2018-11-05] MEDS ORDERED: CETI10TA14 PO (01:08)
[2018-11-05] MEDS ORDERED: LACT1CAP69 PO (01:08)
[2018-11-05] MEDS ORDERED: TRAZ-214 PO (01:08)
[2018-11-05] MEDS ORDERED: TOPI100T38 PO (01:08)
[2018-11-05] MEDS ORDERED: PANT40TA4 PO (01:08)
--- NOTE | 2018-11-05 04:00 | NUR ---
CIWA deferred/ Vitals refused. Pt resting with eyes closed. Respirations are even and unlabored. Bed low, side rails up x 2, and call hargrove in reach. Will continue to monitor.
--- NOTE | 2018-11-05 06:41 | NUR ---
End of Shift Endorsing 28 year old female patient admitted to [facility] 11/04/18 for medically supervised withdrawal from ETOH. Pt not currently on a taper, but has PRN medications available for s/s of withdrawal.. Pt received PRN Ativan 2 mg on caustic cresylate shift superintendent. Last CIWA 18 @2220. Pt resting in bed with eyes closed. Respirations are even and unlabored. Bed is low, padded side rails up x 2, and call [place]arg[place] in reach. PO intake 1543 ml, voided x 3, BM x 0, and slept 9 hours.
--- NOTE | 2018-11-05 07:30 | NUR ---
START OF SHIFT Endorse rcvd from ongoing nurse, client is in bed, lying on her L side, easy to awake, RR 16, even, non-labored. Client is admitted for alcohol withdrawal, Ativan order as needed available to manage withdrawal symptoms. Last CIWA 18 @ 2220, PRN Ativan 2g PO administered. Client slept 9 hrs. Seizure precautions. Bed in lowest/locked position. Side rails x 2 up/padded. Call light within reach.
[2018-11-05 08:12] VITALS: BP 134/89
[2018-11-05] MEDS: LORAZEPAM 0.5 MG TABLET PO SCH ×3 (08:47→21:00)
[2018-11-05] MEDS: FOLIC ACID 1 MG TABLET PO SCH (08:47)
[2018-11-05] MEDS: MULTIVITAMINS,THERAPEUTIC TABLET PO SCH (08:47)
[2018-11-05] MEDS: THIAMINE HCL 100 MG TABLET PO SCH (08:47)
--- NOTE | 2018-11-05 08:47 | NUR ---
CIWA 20 Client presents with gross tremors, need to hold bottle of water with both hands, flushed facial skin, teary eyes, sneezing, sweats, emotional volatility, difficulty concentrating, and difficulty thinking clearly. Client reports intermittent nausea, decreased appetite, and depression. Schedule Ativan 2mg Pop administered. Encourage client to increase PO fluid intake as tolerated to facilitate detox. Call light within reach. PPD Test administered to L forearm.
[2018-11-05] MEDS ORDERED: TUBERCULIN,PURIF.PROT.DERIV. 5 TU/0.1 ML TEST ID ONE (09:00)
[2018-11-05] MEDS ORDERED: 5 DAY TAPER OF LORAZEPAM -SERENITY PROTOCOL PO PRN (09:00)
[2018-11-05] MEDS: SERTRALINE HCL 50 MG TABLET PO SCH (12:25)
[2018-11-05 12:55] VITALS: BP 100/64
--- NOTE | 2018-11-05 12:55 | NUR ---
WA 18 Client reports anxiety, agitation, irritability gross tremors, diaphoretic, cold/chill, intermittent nausea, poor appetite, difficulty thinking clearly, and fatigue. Client decline Zofran 4mg SL at this time, lucero ivan and saltine crackers at bedside. Non-pharmacologic measures rendered. Call light within reach.
[2018-11-05] MEDS: PANTOPRAZOLE SODIUM 40 MG TABLET.DR PO SCH (14:47)
--- NOTE | 2018-11-05 15:00 | NUR ---
[facility] 19 Client reports high levels of anxiety, agitation, restlessness, gross tremors, diaphoretic, cold/chills, shivering, and difficulty concentrating. Schedule Ativan 2mg PO administered. Call light within reach.
[2018-11-05] MEDS: LEVOTHYROXINE SODIUM 25 MCG TABLET PO SCH (15:37)
[2018-11-05 16:55] VITALS: BP 112/71
--- NOTE | 2018-11-05 19:24 | NUR ---
END OF SHIFT Endorse client to incoming nurse, client is in room, a/o x 4, fully ambulatory, client continues to presents with Client reports high levels of anxiety, agitation, restlessness, gross tremors, diaphoretic, cold/chills, shivering, and difficulty concentrating. Client is on 1st of 5 day Ativan . Last CIWA 19 @ 1500. Client is not compliant with group therapy, d/t above withdrawal symptoms. Adequate PO fluid intake 1800mL, void x 2. Consumes 25-50% of meals. Seizure precautions. Bed in lowest/locked position. Call light within reach.
--- NOTE | 2018-11-05 19:41 | NUR ---
START OF SHIFT NOTE Rcvd report from outgoing nurse. Pt is a 28 y/o female A/O to person, place, time, and purpose. Pt was admitted for medically supervised withdrawal from ETOH. Pt also has a substance use h/o Cocaine. Pt is on day 1 of a 5 day Ativan taper. Pt has been presenting w/ chills, sweats, nausea, tremors, drowsiness, anxiety, and agitation. Pt rcvd no PRN during previous shift. Lsst CIWA 18 @ 1600. Call light is within reach. Pt will continue to be monitored and needs met.
[2018-11-05 20:00] VITALS: BP 132/92
[2018-11-05] MEDS: TOPIRAMATE 100 MG TABLET PO SCH (21:00)
[2018-11-05] MEDS: TRAZODONE 100 MG TABLET PO SCH (21:00)
--- NOTE | 2018-11-06 | NUR ---
CIWA DEFERRED. V/S REFUSED Pt is in bed w/ her eyes closed. Pt's respirations are unlabored and even. Will continue to monitor pt.
--- NOTE | 2018-11-06 04:00 | NUR ---
CIWA DEFERRED. V/S REFUSED Pt is in bed w/ her eyes closed. Pt's respirations are unlabored and even.
[2018-11-06 05:06] LABS: HEPATITIS B SURFACE AG Negative (Negative)
[2018-11-06] MEDS: PANTOPRAZOLE SODIUM 40 MG TABLET.DR PO SCH (07:10)
[2018-11-06] MEDS: LEVOTHYROXINE SODIUM 25 MCG TABLET PO SCH (07:10)
--- NOTE | 2018-11-06 07:24 | NUR ---
END OF SHIFT NOTE Endorsed pt to oncoming nurse. Pt is a 28 y/o female A/O to person, place, time, and purpose. Pt was admitted for medically supervised withdrawal from ETOH. Pt also has a substance use h/o Cocaine. Pt completed day 1 of a 5 day Ativan taper. Pt declined PM medications due to sleep. Pt continued presenting w/ anxiety, chills, sweats, tremors, drowsiness, and lethargy. Pt denies any S/I or H/I. No PRN medications were given during current shift. Pts fluid intake was 500ml and she slept for 11.5hrs. Last CIWA 12 @ 1999. Call light is within reach.
--- NOTE | 2018-11-06 07:59 | NUR ---
START OF SHIFT Endorse rcvd from ongoing nurse, client is in bed, alert and oriented to name, place, and situation. She appears disheveled, sweat on neck, arms, and face, flushed facial skin, avoidant gaze, fidgety, gross tremors, and difficult to concentrate. Client reports sensitivity to light, pins and needle feeling on BLE, stomach cramps, nausea, shaking, and anxiety. Encourage client to increase PO fluid intake as tolerated to facilitate detox. Vitamin water and water bottle at bedside. Client is on 2nd of 5 day Ativan taper, last CIWA 18 @ 1999. Seizure precautions. Bed in lowest/locked position. Side rails x 2 up/padded. call light within reach.
[2018-11-06 08:13] VITALS: BP 100/67
--- NOTE | 2018-11-06 08:45 | NUR ---
CIWA 18 Client reports sensitivity to light, pins and needle feeling on BLE, stomach cramps, nausea, shaking, and anxiety. Ativan 1mg Po administered. Call light within reach. Will continue to monitor.
[2018-11-06] MEDS: MULTIVITAMINS,THERAPEUTIC TABLET PO SCH (08:46)
[2018-11-06] MEDS: FOLIC ACID 1 MG TABLET PO SCH (08:46)
[2018-11-06] MEDS: THIAMINE HCL 100 MG TABLET PO SCH (08:46)
[2018-11-06] MEDS: SERTRALINE HCL 50 MG TABLET PO SCH (08:46)
[2018-11-06] MEDS: LORAZEPAM 0.5 MG TABLET PO SCH ×4 (08:46→20:59)
--- NOTE | 2018-11-06 12:30 | NUR ---
Therapist prompted client to attend group therapy.
[2018-11-06 13:08] VITALS: BP 123/88
[2018-11-06] MEDS: IBUPROFEN 600 MG TABLET PO PRN (13:10)
--- NOTE | 2018-11-06 13:10 | NUR ---
CIWA 18 & PRN Motrin 600mg PO for pain in low back 02/26 Client is restless in bed, continuously moving her feet, clammy skin, gross tremors, facial flushed face, and difficulty concentrating. Client reports anxiety, depression, restless legs, sensitivity to light, nausea, shaking, sweats, poor appetite, and difficulty thinking clearly. Schedule Ativan 1mg PO administered. Call light within reach.
--- NOTE | 2018-11-06 14:10 | NUR ---
Reassess PRN Motrin 600mg, client reports relief from pain in low back 0/10.
[2018-11-06] MEDS: HYDROXYZINE PAMOATE 25 MG CAPSULE PO PRN (15:41)
--- NOTE | 2018-11-06 15:41 | NUR ---
PRN Vistaril 50mg PO administered for anxiety mb inability to stay still, she is scratching her stomach, chest, lower back, and scalp, noted with flushed facial skin. Client stated, 'I'm covered in red rashes, I need something for it, like now, I don't know what is happening to me." No raised rash noted, but linear red delatorre noted on upper body, inflicted by client. Will continue to monitor. Call light within reach.
[2018-11-06 16:00] VITALS: BP 121/75
[2018-11-06] MEDS ORDERED: HYDROCORTISONE 1% CREAM 30 GM TUBE TP PRN (16:00)
--- NOTE | 2018-11-06 16:13 | NUR ---
One Time of Benadyil 50mg PO for itching on stomach, neck and back. Addendum: 11/06/18 at 1911 by TASNEEM BHATT RN PRN Hydrocortisone 1% TOP for itching on back and stomach
--- NOTE | 2018-11-06 16:15 | NUR ---
RT prompted pt to attend groups. Pt expressed her interest in arts/crafts activities. When RT went to re-prompt a second time, pt presented as too lethargic and withdrawn to attend group.
[2018-11-06] MEDS ORDERED: diphenhydrAMINE 50 MG CAPSULE PO ONE (16:30)
--- NOTE | 2018-11-06 16:41 | NUR ---
Reassess PRN Vistaril 50mg, client reports no relief from anxiety.
--- NOTE | 2018-11-06 17:13 | NUR ---
Reassess One Time of Benadryl 50mg, client reports relief from itching on stomach, neck and back.
--- NOTE | 2018-11-06 19:11 | NUR ---
END OF SHIFT Endorse client to incoming nurse, client is in room, a/o x 4, fully ambulatory, client continues to present with clammy skin, gross tremors, facial flushed face, and difficulty concentrating. PRN Motrin 600mg Pop for low back pain, Vistaril 50mg PO for anxiety, Hydrocortisone 1% for itching on back and stomach. Client is on 2nd of 5 day Ativan. Last CIWA 17 @ 1613. Client is not compliant with group therapy, d/t above withdrawal symptoms. Adequate PO fluid intake 2300mL, void x 3. Consumes 50-75% of meals. Seizure precautions. Bed in lowest/locked position. Call light within reach.
[2018-11-06 20:00] VITALS: BP 111/61
--- NOTE | 2018-11-06 20:00 | NUR ---
Start of Shift Patient on bed, asleep, arousable and c/o having low energy. She verbalized that her anxiety level has been on and off throughout the day. She is noted to be disheveled and unkempt. She is also noted to have bilateral hand tremors, appears flushed and is withdrawn. Received report from dayshift that patient has poor appetite. Educated patient regarding importance of adhering to dietary regimen. Fall, universal, seizure and safety prec in place. Call light within reach. Last CIWA=13. Will continue to monitor.
[2018-11-06] MEDS: TOPIRAMATE 100 MG TABLET PO SCH (20:59)
[2018-11-06] MEDS: TRAZODONE 100 MG TABLET PO SCH (20:59)
[2018-11-07] VITALS: BP 117/63
--- NOTE | 2018-11-07 04:00 | NUR ---
CIWA deferred Patient asleep on bed, with no SOB nor facial grimacing noted. CIWA deferred per MD order. RR=14.
[2018-11-07] MEDS: LEVOTHYROXINE SODIUM 25 MCG TABLET PO SCH (07:03)
[2018-11-07] MEDS: PANTOPRAZOLE SODIUM 40 MG TABLET.DR PO SCH (07:03)
--- NOTE | 2018-11-07 07:20 | NUR ---
End of Shift Patient continues to have hypoactive body movements and withdrawn. She verbalized having erratic episodes of anxiety throughout the shift when she wakes up. She also continues to have bilateral hand tremors and c/o intermittent episodes of nausea. She still appears disheveled and unkempt. Encouraged patient to take a shower this morning. No PRNs administered during the shift. 3rd day of 5-day Ativan taper to start today. Fall, universal, seizure and safety prec in place. Call light within reach. Last CIWA=12 and slept for 11 hours. Endorsed to AM shift nurse for continuity of care.
--- NOTE | 2018-11-07 07:30 | NUR ---
Start of shift Pt is here for medically supervised withdrawal of ETOH. Pt on 5 day Ativan taper, today is day 3. At 2400 last CIWA 12. Pt slept 11 hours last night. Patient c/o anxiety, nausea, fatigue, fine tremors, difficulty concentrating, anhedonia, flat affect and depressed mood. She is disheveled and malodorous. Room is cluttered with wrappers, empty water bottles, clothes and used linens. Drinks and food spilled on floor, in her bed and on his tray. Encouraged Pt to participate in group therapy sessions today to identify positive coping skills to maintain sobriety. All safety measures in place, bed locked/low position. Pt Full Code and NKA. Will continue to monitor for withdrawal symptoms.
[2018-11-07 08:00] VITALS: BP 116/69
[2018-11-07] MEDS: THIAMINE HCL 100 MG TABLET PO SCH (09:01)
[2018-11-07] MEDS: MULTIVITAMINS,THERAPEUTIC TABLET PO SCH (09:01)
[2018-11-07] MEDS: SERTRALINE HCL 50 MG TABLET PO SCH (09:01)
[2018-11-07] MEDS: FOLIC ACID 1 MG TABLET PO SCH (09:01)
[2018-11-07] MEDS: LORAZEPAM 0.5 MG TABLET PO SCH ×3 (09:02→21:00)
--- NOTE | 2018-11-07 10:37 | NUR ---
Therapist prompted client to attend group therapy.
[2018-11-07 12:00] VITALS: BP 120/79
[2018-11-07] MEDS ORDERED: MAGNESIUM CITRATE 296 ML BOTTLE PO ONE (13:30)
[2018-11-07 16:00] VITALS: BP 99/48
--- NOTE | 2018-11-07 18:30 | NUR ---
Mag Citrate not effective, Pt remains constipated and had no BM today.
--- NOTE | 2018-11-07 18:48 | NUR ---
End of shift Pt is here for medically supervised withdrawal of ETOH. Pt on 5 day Ativan taper, today is day 3. At 1600 last CIWA 11. Patient c/o anxiety, nausea, fatigue, fine tremors, difficulty concentrating, anhedonia, flat affect and depressed mood. She is disheveled and malodorous. Encouraged Pt to participate in group therapy sessions today to identify positive coping skills to maintain sobriety. PO fluids 1375 ml, voids x 4 no BM. All safety measures in place, bed locked/low position. Pt Full Code and NKA. Will continue to monitor for withdrawal symptoms.
--- NOTE | 2018-11-07 19:51 | NUR ---
START OF SHIFT NOTE Rcvd report from outgoing nurse. Pt is a 28 y/o female A/O to person, place, time, and purpose. Pt was admitted for medically supervised withdrawal from ETOH. Pt also has a substance abuse h/o Cocaine. Pt is on day 3 of a 5 day Ativan taper. Pt has been presenting w/ lethargy, drowsiness, withdrawn and isolative behavior, sweats, and constipation. Pt appears disheveled, unkempt, and odorous. Pt rcvd PRN MagCitrate and was noted ineffective by outgoing nurse. Last CIWA 11 @ 1600. Call light is within reach. Pt will continue to be monitored and needs met.
[2018-11-07 20:00] VITALS: BP 105/64
[2018-11-07] MEDS: TOPIRAMATE 100 MG TABLET PO SCH (21:00)
[2018-11-07] MEDS: TRAZODONE 100 MG TABLET PO SCH (21:00)
--- NOTE | 2018-11-08 | NUR ---
CIWA DEFERRED. V/S REFUSED Pt is in bed w/ her eyes closed. Pt's respirations are unlabored and even.
[2018-11-08 04:15] VITALS: BP 115/73
[2018-11-08] MEDS: HYDROXYZINE PAMOATE 25 MG CAPSULE PO PRN ×2 (04:23→15:29)
--- NOTE | 2018-11-08 04:23 | NUR ---
PRN VISTARIL ADMINISTRATION Vistaril 50mg given for anxiety. CIWA 10. Will reassess pt in 1hr.
--- NOTE | 2018-11-08 05:23 | NUR ---
PRN VISTARIL REASSESSMENT Pt is in bed w/ her eyes closed. Pt's respirations are unlabored and even.
[2018-11-08] MEDS: PANTOPRAZOLE SODIUM 40 MG TABLET.DR PO SCH (06:50)
[2018-11-08] MEDS: LEVOTHYROXINE SODIUM 25 MCG TABLET PO SCH (06:51)
--- NOTE | 2018-11-08 07:14 | NUR ---
END OF SHIFT NOTE Endorsed pt to oncoming nurse. Pt is a 28 y/o female A/O to person, place, time, and purpose. Pt was admitted for medically supervised withdrawal from ETOH. Pt also has a substance abuse h/o Cocaine. Pt completed day 3 of a 5 day Ativan taper. Pt continued presenting w/ lethargy, drowsiness, withdrawn and isolative behavior, sweats, and constipation. Pt appears disheveled, unkempt, and odorous. Pt denies any S/I or H/I. PRN Vistaril was given and noted effective. Pts fluid intake was 943ml and she slept for 9.5hrs. Last CIWA 10 @ 0400. Call light is within reach.
--- NOTE | 2018-11-08 07:30 | NUR ---
Start of shift Pt is here for medically supervised withdrawal of ETOH. Pt on 5 day Ativan taper, today is day 4. At 0400 last CIWA 10. Pt slept 11 hours last night. Patient c/o anxiety, fatigue, fine tremors, difficulty concentrating, withdrawn, anhedonia, flat affect and depressed mood. She is disheveled and malodorous. Encouraged Pt to participate in group therapy sessions today to identify positive coping skills to maintain sobriety. All safety measures in place, bed locked/low position. Pt Full Code and NKA. Will continue to monitor for withdrawal symptoms.
[2018-11-08 08:00] VITALS: BP 94/64
[2018-11-08] MEDS: FOLIC ACID 1 MG TABLET PO SCH (09:42)
[2018-11-08] MEDS: THIAMINE HCL 100 MG TABLET PO SCH (09:42)
[2018-11-08] MEDS: MULTIVITAMINS,THERAPEUTIC TABLET PO SCH (09:42)
[2018-11-08] MEDS: LORAZEPAM 0.5 MG TABLET PO SCH ×2 (09:43→20:32)
[2018-11-08] MEDS: SERTRALINE HCL 50 MG TABLET PO SCH (09:43)
--- NOTE | 2018-11-08 09:46 | NUR ---
PRN Miralax 17 gm PO for constipation
--- NOTE | 2018-11-08 11:01 | NUR ---
Pt showered this morning and now attending group therapy session. Pt reports she wants to be more proactive and participate in group to identify +coping skills to maintain sobriety.
[2018-11-08 12:00] VITALS: BP 124/81
--- NOTE | 2018-11-08 12:16 | NUR ---
Therapist prompted client to attend all daily group therapy sessions.
[2018-11-08 12:22] LABS: BILIRUBIN,TOTAL 0.4 mg/dL (0.2-1.0); CREATININE 0.9 mg/dL (0.6-1.3); POTASSIUM 4.8 mmol/L (3.5-5.1); TOTAL PROTEIN, SERUM 7.6 g/dL (6.4-8.2)
[2018-11-08] MEDS: IBUPROFEN 600 MG TABLET PO PRN ×2 (14:16→20:31)
[2018-11-08] MEDS: BACLOFEN 10 MG TABLET PO SCH ×2 (14:16→17:26)
--- NOTE | 2018-11-08 14:17 | NUR ---
PRN Motrin 600 mg PO for back pain #6-04/28
--- NOTE | 2018-11-08 14:23 | NUR ---
Reassess Miralax- Pt had a large BM. formed and brown. Medication effective.
[2018-11-08 16:19] VITALS: BP 114/75
--- NOTE | 2018-11-08 18:50 | NUR ---
End of shift Pt is here for medically supervised withdrawal of ETOH. Pt on 5 day Ativan taper, today is day 4. At 1600 last CIWA 11. PRN given today; Miralax and Motrin. Patient c/o fatigue, fine tremors, difficulty concentrating, withdrawn, anhedonia, flat affect and depressed mood. She did shower today. Encouraged Pt to participate in group therapy sessions today to identify positive coping skills to maintain sobriety. She attended two group therapy sessions today. PO fluids 946 ml, voids x3, BMx1. All safety measures in place, bed locked/low position. Pt Full Code and NKA. Will continue to monitor for withdrawal symptoms. Endorsed to PM shift.
--- NOTE | 2018-11-08 19:46 | NUR ---
START OF SHIFT NOTE Rcvd report from outgoing nurse. Pt is a 28 y/o female A/O to person, place, time, and purpose. Pt was admitted fro medically supervised withdrawal from ETOH. Pt is on day 4 of a 5 day Ativan taper. Pt has been presenting w/ anxiety, nausea, body aches, depressed and withdrawn mood, fine tremors, and racing thoughts. Pt rcvd PRN Motrin and Miralax and both were noted effective by outgoing nurse. Last CIWA 11 @ 1600. Call light is within reach. Pt will continue to be monitored and needs met.
[2018-11-08 20:00] VITALS: BP 142/82
[2018-11-08] MEDS: TRAZODONE 100 MG TABLET PO SCH (20:32)
[2018-11-08] MEDS: TOPIRAMATE 100 MG TABLET PO SCH (20:32)
--- NOTE | 2018-11-08 20:32 | NUR ---
PRN ZOFRAN AND MOTRIN ADMINISTRATION Zofran 4mg for nausea w/ no emesis and Motrin 600mg for body aches/pain given. Will reassess pt in 1hr.
--- NOTE | 2018-11-08 21:32 | NUR ---
PRN ZOFRAN AND MOTRIN REASSESSMENT Pt states relief from nausea and pain has subsided to 1/10 and tolerable. Will continue to monitor pt.
--- NOTE | 2018-11-09 | NUR ---
CIWA DEFERRED. V/S REFUSED Pt is in bed w/ her eyes closed. Pt's respirations are unlabored and even.
--- NOTE | 2018-11-09 04:00 | NUR ---
CIWA DEFERRED. V/S REFUSED Pt is in bed w/ her eyes closed. Pt's respirations are unlabored and even.
[2018-11-09] MEDS: PANTOPRAZOLE SODIUM 40 MG TABLET.DR PO SCH (06:47)
[2018-11-09] MEDS: LEVOTHYROXINE SODIUM 25 MCG TABLET PO SCH (06:47)
--- NOTE | 2018-11-09 07:15 | NUR ---
END OF SHIFT NOTE Endorsed pt to oncoming nurse. Pt is a 28 y/o female A/O to person, place, time, and purpose. Pt was admitted for medically supervised withdrawal from ETOH. Pt completed day 4 of a 5 day Ativan taper. Pt continues presenting w/ anxiety, nausea, body aches, depressed and withdrawn mood, fine tremors, and racing thoughts. Pt denies any S/I or H/I. PRN Motrin and Zofran were given and both were noted effective. Pts fluid intake was 1235ml and she slept for 8hrs. Last CIWA 12 @ 1999. Call light is within reach.
--- NOTE | 2018-11-09 07:30 | NUR ---
START OF SHIFT Endorse rcvd from ongoing nurse, client is in bed, she sounds asleep, easy to awake, RR 16, even, non-labored. Client is on last of 5 day Ativan taper, last CIWA 12 @ 1999. PRN Zofran 4mg SL for nausea, Motrin 600mg PO for body aches. Client has been sleeping for 8 hrs. Seizure precautions. Bed in lowest/locked position. Side rails x 2 up/padded. Call light within reach.
[2018-11-09] MEDS: MULTIVITAMINS,THERAPEUTIC TABLET PO SCH (08:49)
[2018-11-09] MEDS: THIAMINE HCL 100 MG TABLET PO SCH (08:49)
[2018-11-09] MEDS: BACLOFEN 10 MG TABLET PO SCH ×3 (08:49→16:54)
[2018-11-09] MEDS: SERTRALINE HCL 50 MG TABLET PO SCH (08:49)
[2018-11-09] MEDS: FOLIC ACID 1 MG TABLET PO SCH (08:49)
--- NOTE | 2018-11-09 08:49 | NUR ---
CIWA 12 Client presents with anxious mood, irritable, agitated, flat affect, avoidant gaze, clammy skin, flushed facial skin, tremors, and difficulty concentrating. Client reports nausea, poor appetite, abdominal cramps, anxiety, irritability, depression, and fatigue. Client denies any SI/HI. Last schedule dose of Ativan 1mg PO administered. Call light within reach.
[2018-11-09 08:59] VITALS: BP 110/70
[2018-11-09] MEDS ORDERED: LORAZEPAM 0.5 MG TABLET PO SCH (09:00)
--- NOTE | 2018-11-09 12:10 | NUR ---
CIWA 8 Client is in room, a/o x 4, she reports anxiety, agitation, tremors, nausea, abdominal cramps, muscle spasms, and fatigue. Baclofen 10mg PO administered. Will continue to monitor.
[2018-11-09 12:26] VITALS: BP 110/74
[2018-11-09] MEDS ORDERED: LEVO25TA2 PO (14:40)
[2018-11-09] MEDS ORDERED: PANT40TA4 PO (14:40)
[2018-11-09] MEDS ORDERED: TOPI100T38 PO (14:40)
[2018-11-09] MEDS ORDERED: IBUP-1955 PO (14:40)
[2018-11-09] MEDS ORDERED: TRAZ-214 PO (14:40)
[2018-11-09] MEDS ORDERED: SERT50TA12 PO (14:40)
[2018-11-09] MEDS ORDERED: BACL10TA PO (14:40)
--- NOTE | 2018-11-09 16:45 | NUR ---
CIWA 8 Client continue to present with agitation, anxiety, cold/chills, clammy skin, depression, anhedonia, difficulty concentrating, difficulty thinking clearly, tremors felt, flushed face=ial skin, muscle spasm on lower extremities, nausea, and fatigue. Baclofen 10mg PO administered. Will continue to monitor. Call light within reach.
[2018-11-09 16:55] VITALS: BP 117/69
--- NOTE | 2018-11-09 19:13 | NUR ---
END OF SHIFT Endorse client to incoming nurse, client is in room, a/o x 4, fully ambulatory, client continue to present with agitation, anxiety, cold/chills, clammy skin, depression, anhedonia, difficulty concentrating, difficulty thinking clearly, tremors felt, flushed facial skin, nausea, and fatigue. Client complted 5 day Ativan taper, last CIWA 8 @ 1600. Client is schedule for discharge tomorrow am to [facility] for continuity of treatment. Client is compliant with group therapy. Adequate PO fluid intake 1500mL, void x 4. Consumes 75-100% of meals. Seizure precautions. Bed in lowest/locked position. Call light within reach.
--- NOTE | 2018-11-09 19:30 | NUR ---
Start of shift note Received report from day shift nurse. Patient is a 28 year old female admitted for ETOH withdrawal. Patient completed 5 day Ativan taper. Patient is medically cleared to be discharge tomorrow. Patient did not require PRN medication. Last CIWA 8. Patient alert and oriented x 4. Patient reports anxiety, restlessness and intermittent perspiration. Safety measures in place. Will continue to monitor.
[2018-11-09 20:00] VITALS: BP 118/68
[2018-11-09] MEDS: TRAZODONE 100 MG TABLET PO SCH (20:53)
[2018-11-09] MEDS: TOPIRAMATE 100 MG TABLET PO SCH (20:55)
[2018-11-09] MEDS ORDERED: MAGNESIUM CITRATE 296 ML BOTTLE PO ONE (21:15)
--- NOTE | 2018-11-09 21:31 | NUR ---
One Magnesium Citrate administration Patient c/o constipation. Encourage fluids. Will continue to monitor
--- NOTE | 2018-11-10 | NUR ---
CIWA deferred Patient lying in bed with eyes closed. Respiration even and unlabored. VS refused. Will continue to monitor
--- NOTE | 2018-11-10 04:00 | NUR ---
CIWA deferred Patient lying in bed with eyes closed. Respiration even and unlabored. VS refused. Will continue to monitor
[2018-11-10] MEDS: IBUPROFEN 600 MG TABLET PO PRN (06:21)
[2018-11-10] MEDS: LEVOTHYROXINE SODIUM 25 MCG TABLET PO SCH (06:21)
[2018-11-10] MEDS: PANTOPRAZOLE SODIUM 40 MG TABLET.DR PO SCH (06:21)
--- NOTE | 2018-11-10 06:21 | NUR ---
PRN Motrin administration Patient c/o right hip pain. Will monitor for effectiveness
--- NOTE | 2018-11-10 07:21 | NUR ---
PRN Motrin re-assessment Patient states medication is effective. Pain is lessened
--- NOTE | 2018-11-10 07:23 | NUR ---
End of shift note Patient completed 5 day Ativan taper. Patient is medically cleared to be discharge today. Patient alert and oriented x 4. Patient reported anxiety, restlessness and intermittent perspiration. Scheduled medication given as ordered. PRN Magnesium given for constipation. Patient c/o right hip pain. PRN Motrin given, effective. Encouraged fluids. Safety measures in place. Will continue to monitor. Patient slept 7 hours. Fluid intake 596 ml. Voided x 1. No BM. Last CIWA 7.
[2018-11-10 08:00] VITALS: BP 95/60
--- NOTE | 2018-11-10 08:15 | NUR ---
START OF SHIFT: Received pt A/O X 4. She presents with anxious mood and congruent affect. She reports some anxiety about upcoming discharge this morning but expressed enthusiasm toward recovery.CIWA 4 . Ativan taper completed. She reports hip pain 4/10 on scale. Tylenol PRN given to manage pain. Will proceed with discharge process.
[2018-11-10] MEDS: FOLIC ACID 1 MG TABLET PO SCH (09:13)
[2018-11-10] MEDS: BACLOFEN 10 MG TABLET PO SCH (09:13)
[2018-11-10] MEDS: SERTRALINE HCL 50 MG TABLET PO SCH (09:13)
[2018-11-10] MEDS: MULTIVITAMINS,THERAPEUTIC TABLET PO SCH (09:13)
[2018-11-10] MEDS: THIAMINE HCL 100 MG TABLET PO SCH (09:13)
--- NOTE | 2018-11-10 10:05 | NUR ---
DISCHARGE: Pt is A/O X4. She denies S/I and H/I. She completed taper.Educated her on discharge instructions and medications. She expressed verbal understanding of education.She expressed motivation toward recovery. NURSING HOME AIDE escorted pt to [facility] where she was transported to [facility] and transported to [facility] by [employer] [facility].
== END 2018-11-10 10:00 | DRG 895 ==
LOC: SRC 18:33
PROVIDERS: ADMIT Family Medicine Addiction Medicine; ATTEND Family Medicine Addiction Medicine
PROC: HZ2ZZZZ Detoxification Services for Substance Abuse Treatment (ICD-10-PCS; principal; 2018-11-04)
PROC: HZ31ZZZ Individual Counseling for Substance Abuse Treatment, Behavioral (ICD-10-PCS; 2018-11-06)
PROC: HZ41ZZZ Group Counseling for Substance Abuse Treatment, Behavioral (ICD-10-PCS; 2018-11-07)
DX: F10.230 Alcohol dependence with withdrawal, uncomplicated (principal); F31.60 Bipolar disorder, current episode mixed, unspecified; G40.509 Epileptic seizures related to external causes, not intractable, without status epilepticus; Y90.9 Presence of alcohol in blood, level not specified; F17.210 Nicotine dependence, cigarettes, uncomplicated; Z81.1 Family history of alcohol abuse and dependence; F14.10 Cocaine abuse, uncomplicated; F98.8 Other specified behavioral and emotional disorders with onset usually occurring in childhood and adolescence; M79.7 Fibromyalgia; G47.419 Narcolepsy without cataplexy; F60.3 Borderline personality disorder; E03.9 Hypothyroidism, unspecified; F41.0 Panic disorder [episodic paroxysmal anxiety]; F41.1 Generalized anxiety disorder; K59.00 Constipation, unspecified; I10 Essential (primary) hypertension; G47.00 Insomnia, unspecified
CPT/HCPCS: 36415; 70030-TC; 80307; 80324; 83690; 83735; 84443; 84703; 85025; 86580; 86592; 86705; 86803; 87340; 87806; A4663; G0480; Q0162; Q0163